=== PATIENT | male | born 1985 ===

== ENCOUNTER → 2021-09-09 | Outpatient (CLI) | payer OTHER ==
--- NOTE | 2021-09-09 16:22 | KCIC ---
Examination: MRI of the right elbow without contrast HISTORY: History of right elbow pain COMPARISON: None available TECHNIQUE: Multiplanar, multisequence MR imaging of the right elbow was performed without contrast FINDINGS: The attachment of the triceps tendon to the olecranon processes grossly appears intact. The attachmen t of the common extensor, common flexor tendons appears intact. There is mild increased signal identi fied at the attachment of the common flexor tendon to the medial condyle could be medial epicondyliti s.Small elbow joint effusion. The attachment of the brachialis tendon, biceps tendon grossly appears intact. The ulnar nerve in the cubital tunnel grossly appears unremarkable. Ulnar collateral ligament, latera l ulnar collateral ligament, ulnar collateral ligament appears intact. IMPRESSION: 1. Mild increased signal identified at the attachment of the common flexor tendon to the medial cond yle could be medial epicondylitis. 2. Small elbow joint effusion. Electronically signed by: iGno Burroughs MD (09/09/2021 4:20 PM) [id number]
== END ==
LOC: KCIC MRI 15:12
PROVIDERS: ATTEND Physician Assistant
DX: M25.421 Effusion, right elbow (principal); M25.821 Other specified joint disorders, right elbow; M79.10 Myalgia, unspecified site
CPT/HCPCS: 73221